=== PATIENT | male | born 1980 | race Caucasian/White ===

== ENCOUNTER 2016-08-02 16:16 | Emergency (ER) | payer OTHER ==
[~2016-08-02] VITALS: Ht 170.2 cm; Wt 93.3 kg
[~2016-08-02 16:16] MED LIST: ADDERALL XR 3030 MG PO; AMOXICILLIN500 MG PO; CLEOCIN300 MG PO; LORTAB 5-325 M1 EACH PO; NOHOMEMEDS; PERCOCET 5-3251 EACH PO; PERCOCET 5/31 TABLET PO; PRAZOSIN HCL2 MG PO; SEROQUEL200 MG PO; XANAX1 MG PO; ZOLOFT100 MG PO
[2016-08-02 16:37] VITALS: BP 133/90
[2016-08-02] MEDS ORDERED: FLEXERIL10 MG PO (19:32)
[2016-08-02] MEDS ORDERED: ULTRAM50 MG PO (19:32)
[2016-08-02] MEDS ORDERED: PREDNISONE10 MG PO (19:32)
== END 2016-08-02 20:04 | disposition home or self-care (01) ==
LOC: EME 16:16 → RME 16:16
DX: M54.5 Low back pain (principal); F17.200 Nicotine dependence, unspecified, uncomplicated
CPT/HCPCS: 99281; 99284; J7512

== ENCOUNTER 2017-03-10 14:07 | Day surgery (SDC) | payer OTHER ==
[~2017-03-10] VITALS: Ht 170.2 cm; Wt 86.2 kg
[~2017-03-10 14:07] MED LIST changes: +FLEXERIL10 MG PO; +NAPROSYN500 MG PO; +PREDNISONE10 MG PO; +ULTRAM50 MG PO; +ZANAFLEX4 M1 PO
== END 2017-03-10 15:28 | disposition home or self-care (01) ==
LOC: PAIN 14:07 → SDC 14:45 → PAIN 15:28
DX: M47.26 Other spondylosis with radiculopathy, lumbar region (principal); M51.16 Intervertebral disc disorders with radiculopathy, lumbar region; M48.06 Spinal stenosis, lumbar region; M43.16 Spondylolisthesis, lumbar region; F31.9 Bipolar disorder, unspecified; F20.9 Schizophrenia, unspecified; M79.1 Myalgia; F17.210 Nicotine dependence, cigarettes, uncomplicated; Z79.891 Long term (current) use of opiate analgesic
CPT/HCPCS: J1030; J2250; J3010; S0020

== ENCOUNTER 2017-04-26 12:20 | Day surgery (SDC) | payer OTHER ==
[~2017-04-26] VITALS: Ht 170.2 cm; Wt 86.2 kg
== END 2017-04-26 14:12 | disposition home or self-care (01) ==
LOC: PAIN 12:20
DX: M47.26 Other spondylosis with radiculopathy, lumbar region (principal); M48.061 Spinal stenosis, lumbar region without neurogenic claudication; M79.1 Myalgia; M43.16 Spondylolisthesis, lumbar region; F17.200 Nicotine dependence, unspecified, uncomplicated; Z79.891 Long term (current) use of opiate analgesic; F41.8 Other specified anxiety disorders
CPT/HCPCS: J1030; J2250; J3010; S0020